=== PATIENT | female | born 1990 | race Caucasian/White ===

== ENCOUNTER → 2021-10-20 | Outpatient (CLI) | payer OTHER | LOC: KOH-I 13:45 | DX: M14.671 Charcot's joint, right ankle and foot (principal); L97.419 Non-pressure chronic ulcer of right heel and midfoot with unspecified severity; M21.6X1 Other acquired deformities of right foot | CPT/HCPCS: 73700 ==

== ENCOUNTER → 2021-11-07 | Outpatient (CLI) | payer OTHER ==
[2021-11-07 09:28] LABS: HEMOGLOBIN 12.7 gm/dl (12.3-15.3); RED BLOOD COUNT 4.17 M/UL (4.00-5.10)
== END ==
LOC: LAB 08:56
PROVIDERS: Orthopaedic Surgery
DX: L97.519 Non-pressure chronic ulcer of other part of right foot with unspecified severity (principal)
CPT/HCPCS: 36415; 83036; 85025; 85652; 86140